=== PATIENT | male | born 2000 | race Caucasian/White ===

== ENCOUNTER 2023-09-08 21:33 | Emergency (ER) | payer OTHER, SELFPAY | END 2023-09-08 23:03 | disposition home or self-care (01) | LOC: ERS 21:33 | DX: S05.12XA Contusion of eyeball and orbital tissues, left eye, initial encounter (principal); S09.90XA Unspecified injury of head, initial encounter; W18.09XA Striking against other object with subsequent fall, initial encounter | CPT/HCPCS: 70450; 70486 ==